=== PATIENT | male | born 1955 | race Caucasian/White ===

== ENCOUNTER 2024-08-07 13:20 | Inpatient (IN) ==
[2024-08-07 13:38] LABS: ABS Basophils 0.1 10^3/uL (0.0-0.1); ABS Eosinophils 0.1 10^3/uL (0.0-0.5); ABS Lymphocytes 1.4 10^3/uL (1.0-4.8); ABS Monocytes 0.5 10^3/uL (0.0-1.1); ABS Neutrophils 15.5 10^3/uL (1.5-7.6); Eosinophil % 0.5 %; Hematocrit 40.2 % (38-53); Hemoglobin 13.6 g/dL (13.2-16.3); Lymphocyte % 8.1 %; Mean Corpuscular Hemoglobin 31.9 pg (27-33); Mean Corpuscular Hgb Conc 33.8 g/dL (31-36); Mean Corpuscular Volume 94.2 fL (80-97); Mean Platelet Volume 9.6 fL (7.5-11.2); Platelet Count 218 10^3/uL (150-450); Red Blood Count 4.27 10^6/uL (4.06-5.63); White Blood Count 17.6 10^3/uL (3.6-10.2)
[2024-08-07 13:57] LABS: INR 0.98 (0.85-1.14)
[2024-08-07 14:39] LABS: Albumin 3.7 g/dL (3.5-5.7); Albumin/Globulin Ratio 1.5 (1-3); Calcium 8.2 mg/dL (8.6-10.3); Creatinine, Serum 0.96 mg/dL (0.67-1.17); Globulin 2.5 g/dL (2-4); Total Bilirubin 0.5 mg/dL (0.2-1.0); Total Protein 6.2 g/dL (6.4-8.9); eGFR CKD-EPI 86.6 (>60)
[2024-08-07 14:53] LABS: Potassium 4.3 mmol/L (3.5-5.0)
[2024-08-07 15:21] LABS: High Sensitivity Troponin 1 Hr 224 pg/mL (<20)
[2024-08-07] MEDS ORDERED: Senna TAB 8.6 mg TAB PO PRN (16:35)
[2024-08-07 17:09] LABS: HDL Cholesterol 50.3 mg/dL
[2024-08-07] MEDS ORDERED: Ondansetron 4 mg VIAL 2 MG/ML 2 ml VIAL IV PRN (17:12)
[2024-08-07] MEDS: Heparin 5000 UNITS/ML 1 mL VIAL IV SCH (17:59)
[2024-08-07] MEDS: Heparin DRIP 25,000 UNITS BAG 25,000 UNITS/250 ML BAG IV SCH (17:59)
[2024-08-07] MEDS ORDERED: LORazepam 2 mg VIAL 1 ml IM SCH (18:00)
[2024-08-07] MEDS ORDERED: Sulfur Hexaflouride MICROSPHR 25 MG VIAL IV PRN (18:25)
[2024-08-07 19:42] LABS: High Sensitivity Troponin 1 Hr 745 pg/mL (<20)
[2024-08-07] MEDS: Thiamine 100 MG/ML 2 ml VIAL (200 mg) IM ONE (20:37)
[2024-08-07 21:17] LABS: High Sensitivity Troponin 3 Hr 720 pg/mL (<20)
[2024-08-08 06:20] LABS: ABS Basophils 0.1 10^3/uL (0.0-0.1); ABS Eosinophils 0.1 10^3/uL (0.0-0.5); ABS Lymphocytes 1.8 10^3/uL (1.0-4.8); ABS Monocytes 0.8 10^3/uL (0.0-1.1); ABS Neutrophils 7.5 10^3/uL (1.5-7.6); ABS Nucleated RBC 0.01 10^3/ul; Eosinophil % 1.3 %; Hematocrit 41.9 % (38-53); Hemoglobin 14.4 g/dL (13.2-16.3); Lymphocyte % 17.6 %; Mean Corpuscular Hemoglobin 32.5 pg (27-33); Mean Corpuscular Hgb Conc 34.4 g/dL (31-36); Mean Corpuscular Volume 94.3 fL (80-97); Mean Platelet Volume 9.8 fL (7.5-11.2); Nucleated Red Blood Cells % 0.1 %/100WBC (0.0-0.8); Platelet Count 201 10^3/uL (150-450); Red Blood Count 4.44 10^6/uL (4.06-5.63); Red Cell Distribution Width 13.2 % (12-17); White Blood Count 10.3 10^3/uL (3.6-10.2)
[2024-08-08 07:25] LABS: Calcium 8.6 mg/dL (8.6-10.3); Creatinine, Serum 0.94 mg/dL (0.67-1.17); Magnesium 1.9 mg/dL (1.9-2.7); Potassium 4.4 mmol/L (3.5-5.0); eGFR CKD-EPI 88.9 (>60)
[2024-08-08] MEDS ORDERED: Multivitamins/Minerals TAB PO SCH (09:00)
[2024-08-08] MEDS ORDERED: Sulfur Hexaflouride MICROSPHR 25 MG VIAL IV PRN (15:24)
[2024-08-09 06:21] LABS: ABS Basophils 0.1 10^3/uL (0.0-0.1); ABS Eosinophils 0.2 10^3/uL (0.0-0.5); ABS Lymphocytes 1.9 10^3/uL (1.0-4.8); ABS Neutrophils 7.9 10^3/uL (1.5-7.6); ABS Nucleated RBC 0.01 10^3/ul; Eosinophil % 1.6 %; Hematocrit 42.3 % (38-53); Hemoglobin 14.5 g/dL (13.2-16.3); Lymphocyte % 16.7 %; Mean Corpuscular Hemoglobin 32.2 pg (27-33); Mean Corpuscular Hgb Conc 34.3 g/dL (31-36); Mean Platelet Volume 9.9 fL (7.5-11.2); Nucleated Red Blood Cells % 0.1 %/100WBC (0.0-0.8); Platelet Count 202 10^3/uL (150-450); Red Cell Distribution Width 13.3 % (12-17); White Blood Count 11.1 10^3/uL (3.6-10.2)
[2024-08-09 07:00] LABS: Calcium 8.8 mg/dL (8.6-10.3); Creatinine, Serum 0.99 mg/dL (0.67-1.17); Magnesium 1.8 mg/dL (1.9-2.7); Potassium 4.5 mmol/L (3.5-5.0); eGFR CKD-EPI 83.5 (>60)
[2024-08-09] MEDS ORDERED: Regadenoson 0.4 MG/5 ML SYRINGE ONE (09:01)
[2024-08-09] MEDS ORDERED: Aminophylline 25 MG/ML VIAL ONE (09:01)
[2024-08-09] MEDS: Magnesium Sulfate 2 gm BAG 2 GM/50 ML BAG IVPB ONE (12:04)
[2024-08-09] MEDS: Isosorbide Mononit ER 30mg TAB PO SCH (17:08)
[2024-08-09] MEDS: Enoxaparin 40 MG/0.4 ML SYR SUBCUT SCH (20:51)
[2024-08-10] MEDS: Isosorbide Mononit ER 30mg TAB PO ONE (17:24)
[2024-08-10 18:08] VITALS: BP 128/74
== END 2024-08-10 17:45 | disposition home or self-care (01) | DRG 282 ==
LOC: ED 13:20 → EDHOLD 13:20 → SUATTDRO 16:35 → MEDTELE 21:59
PROVIDERS: ADMIT Student in an Organized Health Care Education/Training Program; ATTEND Internal Medicine